=== PATIENT | female | born 1995 | race Hispanic/Latino ===

== ENCOUNTER 2023-04-01 01:03 | Emergency (ER) | payer BC ==
[2023-04-01] MEDS ORDERED: Acetaminophen 500 MG TAB ONE (01:36)
[2023-04-01] MEDS ORDERED: Ondansetron PF 4 MG/2 ML Vial ONE (01:36)
[2023-04-01] MEDS ORDERED: Ketorolac Tromethamine 30 MG/ML VIAL ONE (01:36)
[2023-04-01 01:37] LABS: #Monocytes 0.7 thou/uL (0.11-0.59); #Neutrophils 3.8 thou/uL (1.40-6.50); %Basophils 0.4 % (0.0-1.0); %Eosinophils 0.4 % (0.0-10.0); %Lymphocytes 6.8 % (21.0-51.0); %Monocytes 14.5 % (0.0-10.0); %Neutrophils 77.7 % (42.0-75.0); Hematocrit 37.4 % (36.0-47.0); Hemoglobin 12.4 g/dL (12.0-16.0); Mean Corpuscular HGB CONC 33.2 g/dL (32.0-36.0); Mean Corpuscular Hemoglobin 28.8 pg (27.0-31.0); Mean Platelet Volume 10.5 fL (7.4-10.4); Platelet Count 208 10x3/uL (130-400); RBC Distribution Width 12.3 % (11.5-14.5); White Blood Cell (WBC) Count 4.8 10x3/uL (4.8-10.8)
[2023-04-01 01:46] LABS: BHCG - Serum Negative (NEGATIVE); Pregs Control Background? CLEAR/WHITE (CLR/WHITE); Pregs Control Bar Appear? YES (CONTROL BAR)
[2023-04-01 02:02] LABS: ALT (SGPT) 19 U/L (8-55); AST (SGOT) 13 U/L (5-34); Albumin 4.1 g/dL (3.5-5.0); Alkaline Phosphatase 42 U/L (40-110); Anion Gap 13 mmol/L (10-20); BUN (Urea Nitrogen) 9 mg/dL (7.0-18.7); Bilirubin, Total 0.4 mg/dL (0.2-1.2); Calc. Creatinine Clearance 0 mL/min (70-130); Calcium 9.4 mg/dL (7.8-10.44); Carbon Dioxide 20 mmol/L (22-29); Chloride 104 mmol/L (98-107); Estimated GFR 91; Globulin 3.1 g/dL (2.4-3.5); Glucose 111 mg/dL (70-105); Potassium 3.1 mmol/L (3.5-5.1); Protein, Total 7.2 g/dL (6.0-8.3); Sodium 134 mmol/L (136-145)
[2023-04-01 03:05] LABS: SARS-CoV-2 NAA Rapid Test Not Detected (NotDetected)
[2023-04-01] MEDS ORDERED: Potassium Chloride 20 MEQ TAB ONE (03:20)
[2023-04-01 04:28] LABS: Bilirubin Negative (Negative); Blood, Urine Negative (Negative); CAUTI Indications for Culture Fever or rigors; Clarity Turbid (Clear); Glucose, Urine (Dipstick) Normal (Negative); Ketone, Urine Negative (Negative); Leukocyte 75 Leu/uL (Negative); Nitrite Negative (Negative); Protein, Urine (Dipstick) Negative (Neg-Trace); Specific Gravity, Urine 1.014 (1.002-1.036); Urobilinogen Normal mg/dL (Less than 2)
[2023-04-01 04:33] LABS: Bacteria/HPF 1+ HPF (None Seen)
[2023-04-01 04:34] LABS: Urine Culture Reflex No No
== END 2023-04-01 05:54 | disposition home or self-care (01) ==
LOC: ERS 01:03
DX: B34.9 Viral infection, unspecified (principal); R51.9 Headache, unspecified; E87.6 Hypokalemia; M79.10 Myalgia, unspecified site; Z20.822 Contact with and (suspected) exposure to COVID-19
CPT/HCPCS: 36415; 80053; 81001; 84703; 85025; 93005; 96361; 96374; 96375; J1885; J2405